=== PATIENT | female | born 1965 | race Caucasian/White ===

== ENCOUNTER 2017-01-02 09:06 | Emergency (ER) | payer OTHER ==
[~2017-01-02] VITALS: Ht 162.6 cm; Wt 106.4 kg
[2017-01-02 09:13] VITALS: TEMP 36.8; Ht 162.6 cm; Wt 106.4 kg
[2017-01-02] MEDS ORDERED: SODIUM CHLORIDE 0.9% 1000ML 1,000 ML IV STA (09:28)
[2017-01-02] MEDS ORDERED: ONDANSETRON INJ 2 MG/ML 2 ML VIAL IV STA (09:28)
[2017-01-02] MEDS ORDERED: DiphenhydrAMINE HCL 50 MG/ML VIAL IV STA (09:31)
[2017-01-02] MEDS ORDERED: FENTANYL CITRATE INJ 50 MCG/1 ML 2 ML VIAL IV PRN (09:45)
[2017-01-02 09:51] LABS: URINE APPEARANCE CLEAR (CLEAR); URINE BILIRUBIN NEG (NEG); URINE COLOR YELLOW; URINE NITRITE NEG (NEG); URINE SPECIFIC GRAVITY 1.044 (1.000-1.030); UROBILINOGEN NEG (NEG)
[2017-01-02 09:57] LABS: MANUAL MICROSCOPIC REQUIRED? NO; REVIEW REQ? NO
--- NOTE | 2017-01-02 10:01 | DIAGNOSTIC IMAGING REPORT ---
CHEST ONE VIEW PORTABLE CLINICAL HISTORY: 51 years-old Female presenting with right flank pain. TECHNIQUE: Portable upright AP view of the chest was obtained. COMPARISON: None. FINDINGS: Cardiomediastinal silhouette normal. Lungs and pleural spaces clear. Osseous structures normal. Upper abdomen normal. IMPRESSION: 1. No acute cardiopulmonary disease. Electronically signed by: Williams Pena M.D. 01/02/2017 10:00 AM Dictated Date/Time: 01/02/2017 10:00 AM
[2017-01-02 10:07] LABS: BASO % 0.5 %; BASO ABS # 0.04 K/uL (0-0.2); COMPLETE YES; EOS % 4.8 %; IG% 0.4 %; LYMPH % 21.5 %; MEAN CELL VOLUME 80.6 fL (80-100); MEAN CORPUSCULAR HEMOGLOBIN 26.7 pg (25-34); MEAN CORPUSCULAR HGB CONC 33.1 g/dl (32-36); MEAN PLATELET VOLUME 10.1 fL (7.4-10.4); MONO % 7.5 %; NEUT % 65.3 %; PLATELET COUNT 291 K/uL (130-400); RED BLOOD COUNT 4.84 M/uL (4.2-5.4); WHITE BLOOD COUNT 7.89 K/uL (4.8-10.8)
[2017-01-02 10:11] LABS: PREG INTERNAL NEGATIVE QC NEG CLEAR BACKGROUND; PREG INTERNAL POSITIVE QC POS CONTROL LINE
[2017-01-02 10:19] LABS: BUN/CREATININE RATIO 15.5 (10-20); CALCIUM 8.7 mg/dl (8.5-10.1); CREATININE 0.94 mg/dl (0.60-1.20)
--- NOTE | 2017-01-02 10:19 | EMERGENCY ROOM VISIT NOTE ---
History Report prepared by Amrita: Win Gutierrez Under the Supervision of: Dr. Harrison Anton D.O. First contact with patient: 09:25 Chief Complaint: BACK PAIN Stated Complaint: LOWER BACK PAIN History of Present Illness The patient is a 51 year old female who presents to the Emergency Room with complaints of sudden onset right sided back pain starting 0815 this morning. The patient additionally states that she has some abdominal pain. The patient denies any hematuria, pain with urination, chest pain, and swelling in her legs. She states that her period a month ago and is due for it. The patient states that she is a type 2 diabetic, and she has a history of a cholecystectomy and arthritis. Source of History: patient Onset: 0815 Position: back (right) Timing: other (sudden ) Associated Symptoms: + abdominal pain, No chest pain, No urinary symptoms Review of Systems See HPI for pertinent positives & negatives. A total of 10 systems reviewed and were otherwise negative. Past Medical & Surgical Medical Problems: (1) Type 2 diabetes mellitus Social History Smoking Status: Never Smoker Marital Status: single Occupation Status: unemployed Current/Historical Medications Scheduled Albiglutide (Tanzeum), 50 UNITS SQ WK Empagliflozin (Jardiance), 1 TAB PO DAILY Etodolac (Etodolac), 2 TABS PO DAILY Glyburide (Micronase), 10 MG PO BIDM Losartan Potassium (Cozaar), 50 MG PO DAILY Metformin Hcl (Glucophage), 1,000 MG PO BID Repaglinide (Prandin), 2 MG PO DAILYBD Simvastatin (Zocor), 20 MG PO QPM Scheduled PRN Ibuprofen Tab (Motrin), 800 MG PO Q8H PRN for Pain Oxycodone Immediate Rel Tab (Roxicodone Ir), 1 TAB PO Q4H PRN for Severe Pain Allergies Coded Allergies: Hydrocodone (Unverified Allergy, Intermediate, HIVES, 01/02/17) Morphine (Unverified Allergy, Intermediate, HIVES, 01/02/17) Lisinopril (Unverified Allergy, Mild, COUGHING SPELL, 01/02/17) Physical Exam Vital Signs Date Time Temp Pulse Resp B/P (MAP) Pulse Ox O2 Delivery O2 Flow Rate FiO2 01/02/17 12:09 69 18 121/80 94 01/02/17 11:28 72 16 120/83 94 Room Air 01/02/17 10:28 74 16 117/80 95 Nasal Cannula 2.0 01/02/17 10:02 82 01/02/17 09:13 36.8 79 18 164/96 95 Room Air Physical Exam GENERAL: Patient is awake, alert, anxious, uncomfortable, and appears to be in significant pain. EYES: The conjunctivae are clear. The pupils are round and reactive. EARS, NOSE, MOUTH AND THROAT: The nose is without any evidence of any deformity. Mucous membranes are moist tongue is midline NECK: The neck is nontender and supple. RESPIRATORY: Normal respiratory effort is noted there is no evidence of wheezing rhonchi or rales CARDIOVASCULAR: Regular rate and rhythm noted there no murmurs rubs or gallops normal S1 normal S2 GASTROINTESTINAL: The abdomen is mildly distended but soft. No tenderness guarding or rigidity. PELVIS: The Pelvis is stable. No tenderness to palpation is noted. BACK: Right CVA tenderness to percussion. No midline tenderness noted. Range of motion intact. MUSCULOSKELETAL/EXTREMITIES: There is no evidence of gross deformity full range of motion is noted in the hips and shoulders SKIN: Pedal edema bilaterally There is no obvious evidence of any rash. There are no petechiae, pallor or cyanosis noted. NEUROLOGIC: Patient is awake alert and oriented x3 Medical Decision & Procedures ER Provider Diagnostic Interpretation: Radiology results as stated below per my review and radiologist interpretation: ABD/PELVIS NO IV OR ORAL CONT CLINICAL HISTORY: 51 years-old Female presenting with sudden onset right flank pain, low back pain, no injury, no history of renal stones. TECHNIQUE: Multidetector CT of the abdomen and pelvis was performed without the use of intravenous contrast. IV contrast: None. A dose lowering technique was used consistent with the principles of ALARA (as low as reasonably achievable). COMPARISON: None. CT DOSE (mGy.cm): The estimated cumulative dose is 1010.99 mGy.cm. FINDINGS: Mammography Technologist topogram: Cholecystectomy clips noted. Lung bases: Minimal dependent changes likely atelectasis. Normal heart size. No pericardial or pleural effusion. The intraventricular blood pool is less dense than the adjacent myocardium suggesting anemia. Liver: Normal morphology. Density suggestive of hepatic steatosis. Biliary: No gross biliary ductal dilatation allowing for noncontrast technique. Gallbladder surgically absent. Pancreas: Moderate parenchymal atrophy. Spleen: Normal noncontrast appearance. Adrenal glands: Normal noncontrast appearance. Kidneys and ureters: Right perinephric fat stranding centered at the hilum. Suggestion of mild dilation of the right renal renal pelvis versus parapelvic cysts at the lower pole. No renal calculi. Right periureteral fat stranding along the proximal right ureter without evidence of a ureteral calculus. Few prominent parapelvic cysts suggested in the upper pole the left kidney. No left hydronephrosis. Normal left ureter. Bladder: Normal noncontrast appearance. Pelvic organs: Normal noncontrast appearance. Bowel: Normal. No bowel obstruction. Peritoneal cavity: No free fluid or intraperitoneal gas. Vasculature: Normal noncontrast appearance. Lymph nodes: Few prominent mesenteric lymph nodes with associated mild infiltration of the small bowel mesentery. No pathologically enlarged lymph nodes in the abdomen or pelvis. Abdominal wall: Small focus of gas in the subcutaneous fat of the left ventral abdominal wall possibly secondary to injection. Musculoskeletal: Degenerative changes of the spine. IMPRESSION: 1. No evidence of renal or ureteral calculi. Suggestion of mild right pelviectasis without convincing evidence of an obstruction. Right perinephric fat stranding centered at the renal pelvis and right periureteral fat stranding. This appearance could be secondary to recent passage of a calculus versus urinary tract infection with upper tract involvement. Evaluation for pyelonephritis is limited without intravenous contrast. Correlate with urinalysis. 2. Mild infiltration of the small bowel mesentery with associated few prominent mesenteric lymph nodes could suggest mesenteric panniculitis. This is most commonly asymptomatic but can be a cause for abdominal pain. Electronically signed by: Williams Pena M.D. 01/02/2017 10:20 AM Dictated Date/Time: 01/02/2017 10:10 AM CHEST ONE VIEW PORTABLE CLINICAL HISTORY: 51 years-old Female presenting with right flank pain. TECHNIQUE: Portable upright AP view of the chest was obtained. COMPARISON: None. FINDINGS: Cardiomediastinal silhouette normal. Lungs and pleural spaces clear. Osseous structures normal. Upper abdomen normal. IMPRESSION: 1. No acute cardiopulmonary disease. Electronically signed by: Williams Pena M.D. 01/02/2017 10:00 AM Dictated Date/Time: 01/02/2017 10:00 AM Laboratory Results 01/02/17 09:30 Red Blood Count 4.84, Mean Corpuscular Volume 80.6, Mean Corpuscular Hemoglobin 26.7, Mean Corpuscular Hemoglobin Concent 33.1, Mean Platelet Volume 10.1, Neutrophils (%) (Auto) 65.3, Lymphocytes (%) (Auto) 21.5, Monocytes (%) (Auto) 7.5, Eosinophils (%) (Auto) 4.8, Basophils (%) (Auto) 0.5, Neutrophils # (Auto) 5.15, Lymphocytes # (Auto) 1.70, Monocytes # (Auto) 0.59, Eosinophils # (Auto) 0.38, Basophils # (Auto) 0.04 01/02/17 09:30 Test 01/02/17 09:25 01/02/17 09:30 Urine Color YELLOW Urine Appearance CLEAR (CLEAR) Urine pH 5.0 (4.5-7.5) Urine Specific Proctor 1.044 (1.000-1.030) Urine Protein NEG (NEG) Urine Glucose (UA) 3+ (NEG) Urine Ketones NEG (NEG) Urine Occult Blood 1+ (NEG) Urine Nitrite NEG (NEG) Urine Bilirubin NEG (NEG) Urine Urobilinogen NEG (NEG) Urine Leukocyte Esterase NEG (NEG) Urine WBC (Auto) 1-5 /hpf (0-5) Urine RBC (Auto) 10-30 /hpf (0-4) Urine Hyaline Casts (Auto) 1-5 /lpf (0-5) Urine Epithelial Cells (Auto) 10-20 /lpf (0-5) Urine Bacteria (Auto) NEG (NEG) White Blood Count 7.89 K/uL (4.8-10.8) Red Blood Count 4.84 M/uL (4.2-5.4) Hemoglobin 12.9 g/dL (12.0-16.0) Hematocrit 39.0 % (37-47) Mean Corpuscular Volume 80.6 fL (80-100) Mean Corpuscular Hemoglobin 26.7 pg (25-34) Mean Corpuscular Hemoglobin Concent 33.1 g/dl (32-36) Platelet Count 291 K/uL (130-400) Mean Platelet Volume 10.1 fL (7.4-10.4) Neutrophils (%) (Auto) 65.3 % Lymphocytes (%) (Auto) 21.5 % Monocytes (%) (Auto) 7.5 % Eosinophils (%) (Auto) 4.8 % Basophils (%) (Auto) 0.5 % Neutrophils # (Auto) 5.15 K/uL (1.4-6.5) Lymphocytes # (Auto) 1.70 K/uL (1.2-3.4) Monocytes # (Auto) 0.59 K/uL (0.11-0.59) Eosinophils # (Auto) 0.38 K/uL (0-0.5) Basophils # (Auto) 0.04 K/uL (0-0.2) RDW Standard Deviation 44.8 fL (36.4-46.3) RDW Coefficient of Variation 15.2 % (11.5-14.5) Immature Granulocyte % (Auto) 0.4 % Immature Granulocyte # (Auto) 0.03 K/uL (0.00-0.02) Anion Gap 10.0 mmol/L (3-11) Est Creatinine Clear Calc Drug Dose 85.2 ml/min Estimated GFR () 82.0 Estimated GFR (Non- 70.7 BUN/Creatinine Ratio 15.5 (10-20) Calcium Level 8.7 mg/dl (8.5-10.1) Total Bilirubin 0.4 mg/dl (0.2-1) Direct Bilirubin 0.2 mg/dl (0-0.2) Aspartate Amino Transf (AST/SGOT) 27 U/L (15-37) Alanine Aminotransferase (ALT/SGPT) 23 U/L (12-78) Alkaline Phosphatase 68 U/L (45-117) Total Protein 6.8 gm/dl (6.4-8.2) Albumin 3.4 gm/dl (3.4-5.0) Lipase 126 U/L (73-393) Human Chorionic Gonadotropin, Qual NEG (NEG) Laboratory results per my review. Medications Administered Medications (Trade) Dose Ordered Sig/Katy Route Start Time Stop Time Status Last Admin Dose Admin Sodium Chloride 1,000 ml @ 999 mls/hr Q1H1M STAT IV 01/02/17 09:28 01/02/17 10:28 DC 01/02/17 10:01 999 MLS/HR Ondansetron HCl (Zofran Inj) 4 mg NOW STAT IV 01/02/17 09:28 01/02/17 09:29 DC 01/02/17 10:00 4 MG Fentanyl Citrate (Fentanyl Inj) 50 mcg Q15M PRN IV 01/02/17 09:45 01/02/17 13:21 DC 01/02/17 10:00 50 MCG Diphenhydramine HCl (Benadryl Inj) 25 mg NOW STAT IV 01/02/17 09:31 01/02/17 09:32 DC 01/02/17 10:00 25 MG ED Course 0925: The patient was evaluated in room B7. A complete history and physical examination were performed. 0928: Zofran Inj 4mg IV, NSS 1,000 ml @ 999 mls/hr IV 0931: Benadryl Inj 25mg IV 0945: Fentanyl Inj 50mcg IV 1048: I reevaluated the patient, and she was feeling better. 1138: Upon reevaluation, the patient is feeling better. I discussed the results and treatment plan with her. She verbalized agreement of the treatment plan. She was discharged home. Medical Decision Differential diagnosis: Etiologies such as renal colic, appendicitis, diverticulitis, mesenteric ischemia, aortic pathology, infections, inflammatory bowel disease, PUD, biliary pathology, UTI, as well as others were entertained. Nursing notes reviewed. The patient is a 51-year-old female who presented to the emergency department for an evaluation of acute right flank pain. The patient had associated nausea and vomiting. The patient was treated with IV fluids IV pain medicine IV antiemetics. On subsequent reevaluation she was feeling much better. I discussed the patient's laboratory and radiographic studies with her. She was found have hematuria as well as hydronephrosis on the right. I do feel that her overall condition is consistent with renal colic. There was a differential of pyelonephritis based on the CAT scan but she does not have a fever or significant WBCs in her urinalysis. For this reason I think her CT favors a recently passed kidney stone. On subsequent reevaluation she was feeling much better and again I feel this is a bruise a recently passed kidney stone. I discussed the patient's laboratory radiographic studies with her. She was encouraged to rest and avoid any strenuous activity she was also encouraged to continue all medications as prescribed. She was also encouraged return to the emergency department immediately if symptoms change worsen or the need arises. [place] Drug Monitoring Program Search Results: patient reviewed within database, no issues identified Medication Reconcilliation Current Medication List: was personally reviewed by me Blood Pressure Screening Patient's blood pressure: Elevated blood pressure Blood pressure disposition: Elevated BP felt to be situational Impression Primary Impression: Right flank pain Additional Impressions: Kidney stone Hematuria Hydronephrosis Scribe Attestation The scribe's documentation has been prepared under my direction and personally reviewed by me in its entirety. I confirm that the note above accurately reflects all work, treatment, procedures, and medical decision making performed by me. Departure Information Dispostion Home / Self-Care Prescriptions Oxycodone Immediate Rel Tab (ROXICODONE IR) 5 Mg Tab 1 TAB PO Q4H Y for Severe Pain, #15 TAB Prov: Harrison Anton, DO 01/02/17 Forms HOME CARE DOCUMENTATION FORM, IMPORTANT VISIT INFORMATION, Work Instructions Patient Instructions Kidney Stones, My [facility] Additional Instructions Drink plenty clear liquids. Continue all medications as prescribed. Continue using Motrin and Tylenol as directed for mild pain. Follow-up with your family this week. Return to emergency department immediately if symptoms change worsen or the need arises. Problem Qualifiers Additional Impressions: Hematuria Hematuria type: unspecified type Qualified Codes: R31.9 - Hematuria, unspecified Hydronephrosis Hydronephrosis type: unspecified Qualified Codes: N13.30 - Unspecified hydronephrosis
[2017-01-02 10:23] LABS: POTASSIUM 3.4 mmol/L (3.5-5.1)
[2017-01-02] MEDS ORDERED: LOSA50TA6 PO (10:51)
[2017-01-02] MEDS ORDERED: REPA2TAB13 PO (10:51)
[2017-01-02] MEDS ORDERED: IBUP-1451 PO (10:51)
[2017-01-02] MEDS ORDERED: SIMV20TA2 PO (10:51)
[2017-01-02] MEDS ORDERED: ALBI1INJ2 SQ (10:51)
[2017-01-02] MEDS ORDERED: GLYB5TAB8 PO (10:51)
[2017-01-02] MEDS ORDERED: EMPA1TAB3 PO (10:51)
[2017-01-02] MEDS ORDERED: LDN500 PO (10:51)
[2017-01-02] MEDS ORDERED: METF-384 PO (10:51)
[2017-01-02] MEDS ORDERED: OXYC1TAB3 PO (11:32)
[2017-01-02 12:09] VITALS: BP 121/80; PULSE 69; O2SAT 94
== END 2017-01-02 12:12 | disposition home or self-care (01) ==
LOC: EDBD 09:06 → C.EDB 09:07
DX: R10.9 Unspecified abdominal pain (principal); N20.0 Calculus of kidney; R31.9 Hematuria, unspecified; N13.30 Unspecified hydronephrosis; E11.9 Type 2 diabetes mellitus without complications; M19.90 Unspecified osteoarthritis, unspecified site; Z79.899 Other long term (current) drug therapy